=== PATIENT | male | born 1990 | race Caucasian/White ===

== ENCOUNTER 2020-07-10 13:42 | Emergency (ER) | payer OTHER ==
[~2020-07-10] VITALS: Ht 175.3 cm; Wt 94.3 kg
[2020-07-10 15:22] VITALS: BP 130/85
== END 2020-07-10 15:24 | disposition home or self-care (01) ==
LOC: M ED 13:42
DX: S06.0X0D Concussion without loss of consciousness, subsequent encounter (principal); W22.8XXD Striking against or struck by other objects, subsequent encounter; Y92.9 Unspecified place or not applicable; Y93.9 Activity, unspecified; Y99.0 Civilian activity done for income or pay

== ENCOUNTER 2020-08-20 20:02 | Emergency (ER) | payer OTHER ==
[~2020-08-20] VITALS: Ht 175.3 cm; Wt 100.0 kg
[2020-08-20] MEDS ORDERED: CYCL-707 (20:52)
[2020-08-20] MEDS ORDERED: FLUO20CA22 (20:52)
[2020-08-20] MEDS ORDERED: FLUO10CA16 (20:52)
[2020-08-20] MEDS ORDERED: LEVO75TA4 (20:52)
[2020-08-20] MEDS ORDERED: diphenhydrAMINE 50MG/ML VIAL (J1200) IV STA (22:26)
[2020-08-20] MEDS ORDERED: NS 1,000 ML IV ONE (22:30)
[2020-08-20] MEDS ORDERED: KETOROLAC 30 MG/ML 1ML VIAL IV ONE (22:30)
[2020-08-20] MEDS ORDERED: METOCLOPRAMIDE INJ 10MG/2ML VIAL (J2765 PER 1) IV ONE (22:30)
[2020-08-20 22:41] LABS: BASO % 0.4 % (0.0-1.0); EOS # 0.2 10^3/uL (0.0-0.5); EOS % 3.1 % (0.0-3.0); HEMATOCRIT 44.4 % (42.0-52.0); HEMOGLOBIN 14.6 g/dl (13.5-17.5); LYMPH % 26.6 % (24.0-44.0); MEAN CORPUSCULAR HEMOGLOBIN 28.9 pg (27.0-33.0); MEAN CORPUSCULAR HGB CONC 32.9 g/dl (32.0-36.5); MEAN CORPUSCULAR VOLUME 87.9 fl (80.0-96.0); MONO # 0.7 10^3/uL (0.0-0.8); MONO % 9.4 % (0.0-5.0); NEUTROPHILS # 4.6 10^3/uL (1.5-8.5); PLATELET COUNT, AUTOMATED 297 10^3/uL (150-450); RED BLOOD COUNT 5.05 10^6/uL (4.30-6.10); WHITE BLOOD COUNT 7.6 10^3/uL (4.0-10.0)
[2020-08-20 22:59] LABS: ERYTHROCYTE SEDIMENTATION RATE 5 mm/hr (0-15)
[2020-08-20 23:04] LABS: BLOOD UREA NITROGEN 18 MG/DL (7-18); CALCIUM LEVEL 8.5 MG/DL (8.5-10.1); CARBON DIOXIDE LEVEL 30 MEQ/L (21-32); CHLORIDE LEVEL 106 MEQ/L (98-107); CREATININE FOR GFR 0.86 MG/DL (0.70-1.30); GLOMERULAR FILTRATION RATE > 60.0 (>60); GLUCOSE, FASTING 89 MG/DL (70-100); POTASSIUM SERUM 4.2 MEQ/L (3.5-5.1); SODIUM LEVEL 142 MEQ/L (136-145)
[2020-08-21] MEDS ORDERED: DIVALPROEX 250 MG TAB PO ONE (00:45)
[2020-08-21] MEDS ORDERED: DEPA250T32 PO (00:48)
[2020-08-21 01:00] VITALS: BP 137/81
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
== END 2020-08-21 01:03 | disposition home or self-care (01) ==
LOC: M ED 20:02
DX: F07.81 Postconcussional syndrome (principal); R51.9 Headache, unspecified; Z79.899 Other long term (current) drug therapy
CPT/HCPCS: 70450; 80048; 83735; 85025; 85652; 96361; 96374; 96375; 99284; J1200; J1885; J2765

== ENCOUNTER → 2021-03-30 | Outpatient (CLI) | payer OTHER ==
[~2021-03-30] MED LIST: CYCL-707; DEPA250T32 PO; FLUO10CA16; FLUO20CA22; LEVO75TA4
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
== END ==
LOC: M PLAIMG 10:04
PROVIDERS: ATTEND Physical Medicine & Rehabilitation
DX: S06.0X1D Concussion with loss of consciousness of 30 minutes or less, subsequent encounter (principal); R41.89 Other symptoms and signs involving cognitive functions and awareness; R46.89 Other symptoms and signs involving appearance and behavior; H53.9 Unspecified visual disturbance